=== PATIENT | male | born 1980 | race Caucasian/White ===

== ENCOUNTER 2016-12-27 19:57 | Emergency (ER) | payer OTHER ==
--- NOTE | 2016-12-27 21:00 | EDPHY ---
H & P Time Seen by Provider: 12/27/16 20:44 HPI/ROS: CHIEF COMPLAINT: Right knee injury HISTORY OF PRESENT ILLNESS: 1 hour prior to arrival patient was jumping on a trampoline and came down on the soccer ball twisting his right knee. [place] a pop and had pain more laterally on the right side. REVIEW OF SYSTEMS: No hip or ankle or foot injury PAST MEDICAL HISTORY: Multiple orthopedic surgeries including left leg, left clavicle, right shoulder, left elbow. Sees Dr. Linares. Social history: no alcohol General Appearance: Alert and conversant, cooperative. The compartments are soft in the right leg. Normal range of motion of the right knee from full flexion to full extension. No effusion palpated. Stable to varus and valgus stress and Genny's is negative. Joint line tenderness on the lateral surface as well as tenderness to the lateral collateral ligament. Normal motor sensory and pulse in the foot. Skin intact. Emergency Department course/MDM: The x-ray of the right knee. Knee immobilizer and orthopedic follow-up. 2144: X-rays discussed, orthopedic follow-up. Likely lateral collateral ligament sprain. Smoking Status: Never smoked Constitutional: Initial Vital Signs Temperature (C) 37.0 C 12/27/16 20:11 Heart Rate 64 12/27/16 20:11 Respiratory Rate 18 12/27/16 20:11 Blood Pressure 132/70 H 12/27/16 20:11 O2 Sat (%) 96 12/27/16 20:11 O2 Delivery Mode Room Air Allergies/Adverse Reactions: No Known Allergies Allergy (Verified 12/27/16 20:13) Home Medications: Medication Instructions Recorded Miscellaneous Medical Supply [NO 03/15/12 HOME MEDS] MDM/Departure - MDM Imaging Results: Imaging Impressions Knee X-Ray 12/27/16 21:00 Impression: Negative. No acute fracture or effusion. - Depart Disposition: Home, Routine, Self-Care Clinical Impression: Sprain of right knee Qualifiers: Encounter type: initial encounter Involved ligament of knee: lateral collateral ligament Qualified Code(s): S83.421A - Sprain of lateral collateral ligament of right knee, initial encounter Condition: Good Instructions: Knee Sprain (ED) Referrals: Rey Anthony MD [Primary Care Provider] - As per Instructions Jerry Linares MD [Medical Doctor] - As per Instructions (this week in the office)
[2016-12-27 21:57] VITALS: BP 120/72; PULSE 60; RESP 20; TEMP 98.1; O2SAT 95
== END 2016-12-27 21:57 | disposition home or self-care (01) ==
DX: S83.412A Sprain of medial collateral ligament of left knee, initial encounter (principal); X50.9XXA Other and unspecified overexertion or strenuous movements or postures, initial encounter; Y99.8 Other external cause status; Y93.44 Activity, trampolining